=== PATIENT | female | born 1965 | race Hispanic/Latino ===

== ENCOUNTER 2022-12-15 10:14 | Outpatient (CLI) | payer OTHER, MEDICAID | END 2022-12-15 10:15 | disposition home or self-care (01) | LOC: CSHRAD 10:14 → CSHER/OP 10:14 | PROVIDERS: ATTEND Internal Medicine | DX: M48.061 Spinal stenosis, lumbar region without neurogenic claudication (principal); Q76.49 Other congenital malformations of spine, not associated with scoliosis; M48.07 Spinal stenosis, lumbosacral region; M24.28 Disorder of ligament, vertebrae; R93.7 Abnormal findings on diagnostic imaging of other parts of musculoskeletal system | CPT/HCPCS: 72148 ==

== ENCOUNTER 2024-03-15 23:40 | Inpatient (IN) | payer OTHER, MEDICAID ==
[2024-03-16 00:32] LABS: #Basophils Less than 0.03 10x3/uL (0.0-0.2); #Monocytes 0.26 10x3/uL (0.0-1.1); #Neutrophils 2.45 10x3/uL (1.5-8.4); %Basophils 0.3 % (0.0-2.0); %Eosinophils 3.1 % (0.0-6.0); %Lymphocytes 12.9 % (18.0-47.0); %Neutrophils 75.4 % (40.0-75.0); Hematocrit 23.2 % (34.9-44.5); Hemoglobin 8.1 g/dL (12.0-15.5); Mean Corpuscular HGB CONC 34.9 g/dL (32.0-36.0); Mean Corpuscular Hemoglobin 30.3 pg (27.0-33.0); Mean Corpuscular Volume 86.9 fL (81.6-98.3); Mean Platelet Volume 9.9 fL (7.4-10.4); Platelet Count 127 10x3/uL (150-450); RBC Distribution Width 16.2 % (11.5-14.5); Red Blood Cell (RBC) Count 2.67 10x6/uL (3.90-5.03); White Blood Cell (WBC) Count 3.25 10x3/uL (3.5-10.5)
[2024-03-16 00:50] LABS: ALT (SGPT) 11 U/L (Less than 34); AST (SGOT) 17 U/L (11-34); Alkaline Phosphatase 70 U/L (40-110); Anion Gap 9 mmol/L (10-20); BUN (Urea Nitrogen) 36 mg/dL (9.8-20.1); Bilirubin, Total 0.4 mg/dL (0.3-1.2); Calc. Creatinine Clearance 0 mL/min (70-130); Calcium 8.2 mg/dL (7.8-10.44); Carbon Dioxide 22 mmol/L (22-29); Chloride 111 mmol/L (98-107); Estimated GFR 87; Glucose 291 mg/dL (70-105); Lipase 17 U/L (8-78); Magnesium 2.3 mg/dL (1.6-2.6); Potassium 4.8 mmol/L (3.5-5.1); Sodium 137 mmol/L (136-145)
[2024-03-16] MEDS ORDERED: cefTRIAXone (ROCEPHIN) 2 GM VIAL ONE (00:50)
[2024-03-16] MEDS ORDERED: Azithromycin 500 MG VIAL ONE (00:50)
[2024-03-16 00:56] LABS: Troponin I Less than 0.010 ng/mL (< 0.028)
[2024-03-16 01:00] LABS: Actual Bicarbonate (HCO3v) 22.8 mEq/L (22-28); Analyzer IN Cardio CS ER; Base Excess -2.9 mEq/L (-2 - +2); Calcium, Ionized (venous) 1.16 mmol/L (1.16-1.32); Chloride (VBG) 107 mmol/L (98-106); Critical Notified By: CP.PH; Hematocrit-VBG 24 % (36.0-47.0); Potassium (VBG) 4.83 mmol/L (3.70-5.30); Puncture Site Other Site; RapidComm Collect By LAB.YY; Sodium 136 mmol/L (133-146); pH (venous) 7.334 (7.32-7.43)
[2024-03-16] MEDS ORDERED: Morphine 4 MG/ML VIAL ONE (01:01)
[2024-03-16 01:03] LABS: Bilirubin Neg (Negative); Blood, Urine 50 (Negative); Clarity Clear (Clear); Glucose, Urine (Dipstick) 250 mg/dL (Negative); Ketone, Urine Negative (Negative); Leukocyte Negative (Negative); Nitrite Negative (Negative); Protein, Urine (Dipstick) 500 mg/dl (Neg-Trace); Specific Gravity, Urine 1.015 (1.005-1.030); Urobilinogen Normal mg/dL (Less than 2)
[2024-03-16] MEDS ORDERED: Glucagon 1 MG/ML KIT IM PRN (01:31)
[2024-03-16] MEDS ORDERED: Dextrose 50% Abboject 50 ML SYRINGE SLOW IVP PRN (01:31)
[2024-03-16] MEDS ORDERED: Dextrose 5% in Water 1,000 ML IV PRN (01:31)
[2024-03-16] MEDS ORDERED: Calcium Carbonate 500 MG ChewTAB PO PRN (01:32)
[2024-03-16] MEDS ORDERED: Senokot S 8.6-50 MG TAB PO PRN (01:32)
[2024-03-16 01:37] LABS: CAUTI Indications for Culture Alt mental st,lethar; Squamous Epithelial 0-3 HPF (0-3); Transitional Epithelial 0-3 HPF (None Seen); WBC/HPF 0-3 HPF (0-3)
[2024-03-16 01:42] LABS: Bacteria/HPF 1+ HPF (None Seen)
[2024-03-16 01:43] LABS: Urine Culture Reflex No No
[2024-03-16] MEDS: Furosemide 20 MG (2 mL) VIAL SLOW IVP SCH (03:23)
[2024-03-16] MEDS: Benzonatate 100 MG CAP PO SCH ×2 (03:23→08:48)
[2024-03-16] MEDS: Guaifenesin DM 100-10/5 ML UDCUP PO SCH (03:23)
[2024-03-16] MEDS: Cefepime 2 GM in Sodium Chloride 0.9% 100 ML IVPB SCH (03:23)
[2024-03-16 04:04] LABS: #Basophils Less than 0.03 10x3/uL (0.0-0.2); #Eosinophils 0.12 10x3/uL (0.0-0.5); #Monocytes 0.27 10x3/uL (0.0-1.1); #Neutrophils 2.55 10x3/uL (1.5-8.4); %Basophils 0.6 % (0.0-2.0); %Eosinophils 3.4 % (0.0-6.0); %Lymphocytes 16.4 % (18.0-47.0); %Monocytes 7.6 % (0.0-10.0); Hematocrit 25.1 % (34.9-44.5); Hemoglobin 8.2 g/dL (12.0-15.5); Mean Corpuscular HGB CONC 32.7 g/dL (32.0-36.0); Mean Corpuscular Volume 88.7 fL (81.6-98.3); Mean Platelet Volume 9.3 fL (7.4-10.4); Platelet Count 122 10x3/uL (150-450); RBC Distribution Width 16.4 % (11.5-14.5); Red Blood Cell (RBC) Count 2.83 10x6/uL (3.90-5.03); White Blood Cell (WBC) Count 3.54 10x3/uL (3.5-10.5)
[2024-03-16 04:10] LABS: Legionella Urinary Ag Negative (Negative); Strep pneumo Urine Ag NEGATIVE (NEGATIVE)
[2024-03-16] MEDS: HYDROcodone/Acetaminophen 5/325 mg Tablet PO PRN (04:29)
[2024-03-16] MEDS: diphenhydrAMINE 25 MG CAP PO PRN (04:29)
[2024-03-16] MEDS: Ondansetron PF 4 MG/2 ML Vial IVP PRN (04:29)
[2024-03-16 04:30] LABS: Anion Gap 8 mmol/L (10-20); BUN (Urea Nitrogen) 36 mg/dL (9.8-20.1); Calc. Creatinine Clearance 145 mL/min (70-130); Calcium 8.3 mg/dL (7.8-10.44); Carbon Dioxide 23 mmol/L (22-29); Chloride 112 mmol/L (98-107); Estimated GFR 80; Glucose 265 mg/dL (70-105); Potassium 5.2 mmol/L (3.5-5.1); Sodium 138 mmol/L (136-145)
[2024-03-16] MEDS: Morphine IR Tab 15 MG TAB PO PRN (06:09)
[2024-03-16] MEDS: Insulin Lispro 100 UNIT/ML 10 ML VIAL SC PRN (06:10)
[2024-03-16 06:14] VITALS: BMI 51.2
[2024-03-16] MEDS: Pantoprazole 40 MG DR.TAB PO SCH (08:48)
[2024-03-16] MEDS: Multivit, Therapeutic 1 TAB PO SCH (08:48)
[2024-03-16] MEDS: Furosemide 20 MG TAB PO SCH (08:48)
[2024-03-16] MEDS: Spironolactone 25 MG TAB PO SCH (08:48)
[2024-03-16] MEDS: metFORMIN 500 MG TAB PO SCH (08:48)
[2024-03-16] MEDS: Folic Acid/Vit B Comp W-C PO SCH (08:55)
[2024-03-16] MEDS ORDERED: Enoxaparin 40 MG (0.4 mL) SYRINGE SC SCH (09:00)
[2024-03-16] MEDS: Lactulose 20 GM (30 mL) UDCUP PO SCH (09:01)
[2024-03-16] MEDS: Morphine 4 MG/ML VIAL SLOW IVP PRN (10:10)
[2024-03-16] MEDS: Enoxaparin 40 MG (0.4 mL) SYRINGE SC SCH (19:38)
[2024-03-17] MEDS: Azithromycin 500 MG in Sodium Chloride 0.9% 250 ML 250 ML IVPB SCH (02:09)
[2024-03-17 04:15] LABS: #Basophils Less than 0.03 10x3/uL (0.0-0.2); #Eosinophils 0.16 10x3/uL (0.0-0.5); #Monocytes 0.21 10x3/uL (0.0-1.1); #Neutrophils 1.77 10x3/uL (1.5-8.4); %Basophils 0.7 % (0.0-2.0); %Eosinophils 5.7 % (0.0-6.0); %Lymphocytes 22.2 % (18.0-47.0); %Monocytes 7.5 % (0.0-10.0); %Neutrophils 63.5 % (40.0-75.0); Hematocrit 23.6 % (34.9-44.5); Mean Corpuscular HGB CONC 33.9 g/dL (32.0-36.0); Mean Corpuscular Hemoglobin 30.1 pg (27.0-33.0); Mean Corpuscular Volume 88.7 fL (81.6-98.3); Mean Platelet Volume 9.7 fL (7.4-10.4); Platelet Count 129 10x3/uL (150-450); RBC Distribution Width 16.9 % (11.5-14.5); Red Blood Cell (RBC) Count 2.66 10x6/uL (3.90-5.03); White Blood Cell (WBC) Count 2.79 10x3/uL (3.5-10.5)
[2024-03-17 04:30] LABS: Anion Gap 10 mmol/L (10-20); BUN (Urea Nitrogen) 39 mg/dL (9.8-20.1); Calc. Creatinine Clearance 138 mL/min (70-130); Calcium 8.2 mg/dL (7.8-10.44); Carbon Dioxide 22 mmol/L (22-29); Chloride 111 mmol/L (98-107); Estimated GFR 70; Glucose 152 mg/dL (70-105); Potassium 5.6 mmol/L (3.5-5.1); Sodium 137 mmol/L (136-145)
[2024-03-17] MEDS: Morphine 2 MG/ML VIAL SLOW IVP PRN (08:26)
[2024-03-17] MEDS: Morphine ER 15 MG TAB PO SCH ×2 (09:52→20:44)
[2024-03-17] MEDS: Morphine IR Tab 15 MG TAB PO PRN (15:44)
[2024-03-17] MEDS: cefTRIAXone\\ROCEPHIN 2 GM in Sodium Chloride 0.9% 100 ML IVPB SCH (16:00)
[2024-03-17] MEDS ORDERED: Amoxicillin/Potassium Clav 875 MG TAB PO SCH (21:00)
[2024-03-17] MEDS ORDERED: Morphine ER 15 MG TAB PO SCH (21:00)
[2024-03-18 05:06] LABS: #Basophils Less than 0.03 10x3/uL (0.0-0.2); #Eosinophils 0.12 10x3/uL (0.0-0.5); #Monocytes 0.17 10x3/uL (0.0-1.1); #Neutrophils 1.87 10x3/uL (1.5-8.4); %Basophils 0.7 % (0.0-2.0); %Eosinophils 4.3 % (0.0-6.0); %Lymphocytes 21.8 % (18.0-47.0); %Monocytes 6.1 % (0.0-10.0); %Neutrophils 66.7 % (40.0-75.0); Hematocrit 22.4 % (34.9-44.5); Hemoglobin 7.7 g/dL (12.0-15.5); Mean Corpuscular HGB CONC 34.4 g/dL (32.0-36.0); Mean Corpuscular Hemoglobin 30.7 pg (27.0-33.0); Mean Corpuscular Volume 89.2 fL (81.6-98.3); Mean Platelet Volume 9.7 fL (7.4-10.4); Platelet Count 129 10x3/uL (150-450); Red Blood Cell (RBC) Count 2.51 10x6/uL (3.90-5.03)
[2024-03-18 05:22] LABS: Anion Gap 10 mmol/L (10-20); BUN (Urea Nitrogen) 41 mg/dL (9.8-20.1); Calc. Creatinine Clearance 132 mL/min (70-130); Calcium 8.2 mg/dL (7.8-10.44); Carbon Dioxide 22 mmol/L (22-29); Chloride 110 mmol/L (98-107); Estimated GFR 66; Glucose 141 mg/dL (70-105); Potassium 5.3 mmol/L (3.5-5.1); Sodium 137 mmol/L (136-145)
[2024-03-18] MEDS: LOKELMA 10 GM PACKET PO SCH (09:05)
[2024-03-18] MEDS: Azithromycin 250 MG TAB PO SCH (09:05)
[2024-03-18] MEDS: Sodium Polystyrene Sulfonate 15 GM (60 mL) BOT PO SCH (09:09)
[2024-03-19] MEDS: HYDROcodone/Acetaminophen 5/325 mg Tablet PO PRN (01:00)
[2024-03-19 04:12] LABS: #Basophils Less than 0.03 10x3/uL (0.0-0.2); #Eosinophils 0.11 10x3/uL (0.0-0.5); #Monocytes 0.24 10x3/uL (0.0-1.1); #Neutrophils 2.02 10x3/uL (1.5-8.4); %Basophils 0.3 % (0.0-2.0); %Eosinophils 3.7 % (0.0-6.0); %Lymphocytes 20.1 % (18.0-47.0); %Neutrophils 67.6 % (40.0-75.0); Hematocrit 22.7 % (34.9-44.5); Hemoglobin 7.8 g/dL (12.0-15.5); Mean Corpuscular HGB CONC 34.4 g/dL (32.0-36.0); Mean Corpuscular Hemoglobin 30.5 pg (27.0-33.0); Mean Corpuscular Volume 88.7 fL (81.6-98.3); Mean Platelet Volume 9.4 fL (7.4-10.4); Platelet Count 126 10x3/uL (150-450); RBC Distribution Width 16.7 % (11.5-14.5); Red Blood Cell (RBC) Count 2.56 10x6/uL (3.90-5.03); White Blood Cell (WBC) Count 2.99 10x3/uL (3.5-10.5)
[2024-03-19 04:30] LABS: Anion Gap 11 mmol/L (10-20); BUN (Urea Nitrogen) 43 mg/dL (9.8-20.1); Calc. Creatinine Clearance 151 mL/min (70-130); Calcium 8.4 mg/dL (7.8-10.44); Carbon Dioxide 21 mmol/L (22-29); Chloride 113 mmol/L (98-107); Estimated GFR 78; Glucose 117 mg/dL (70-105); Potassium 5.9 mmol/L (3.5-5.1); Sodium 139 mmol/L (136-145)
[2024-03-19] MEDS: Sodium Polystyrene Sulfonate 15 GM (60 mL) BOT PO SCH (06:11)
[2024-03-19] MEDS: Lactulose 20 GM (30 mL) UDCUP PO SCH (09:16)
[2024-03-19] MEDS: Furosemide 40 MG TAB PO SCH (09:16)
[2024-03-19 10:52] LABS: Anion Gap 12 mmol/L (10-20); BUN (Urea Nitrogen) 43 mg/dL (9.8-20.1); Calc. Creatinine Clearance 149 mL/min (70-130); Calcium 8.8 mg/dL (7.8-10.44); Carbon Dioxide 20 mmol/L (22-29); Chloride 111 mmol/L (98-107); Estimated GFR 77; Glucose 121 mg/dL (70-105); Potassium 5.6 mmol/L (3.5-5.1); Sodium 137 mmol/L (136-145)
[2024-03-20 04:20] LABS: #Basophils Less than 0.03 10x3/uL (0.0-0.2); #Eosinophils 0.08 10x3/uL (0.0-0.5); #Monocytes 0.22 10x3/uL (0.0-1.1); #Neutrophils 1.85 10x3/uL (1.5-8.4); %Basophils 0.7 % (0.0-2.0); %Eosinophils 2.9 % (0.0-6.0); %Lymphocytes 22.1 % (18.0-47.0); %Monocytes 7.9 % (0.0-10.0); Hematocrit 22.1 % (34.9-44.5); Hemoglobin 7.4 g/dL (12.0-15.5); Mean Corpuscular HGB CONC 33.5 g/dL (32.0-36.0); Mean Corpuscular Hemoglobin 29.6 pg (27.0-33.0); Mean Corpuscular Volume 88.4 fL (81.6-98.3); Mean Platelet Volume 9.6 fL (7.4-10.4); Platelet Count 126 10x3/uL (150-450); RBC Distribution Width 16.8 % (11.5-14.5)
[2024-03-20 04:37] LABS: Anion Gap 9 mmol/L (10-20); BUN (Urea Nitrogen) 38 mg/dL (9.8-20.1); Calc. Creatinine Clearance 164 mL/min (70-130); Calcium 8.7 mg/dL (7.8-10.44); Carbon Dioxide 22 mmol/L (22-29); Chloride 113 mmol/L (98-107); Estimated GFR 86; Glucose 147 mg/dL (70-105); Potassium 5.4 mmol/L (3.5-5.1); Sodium 139 mmol/L (136-145)
[2024-03-20] MEDS: LOKELMA 10 GM PACKET PO SCH (08:09)
[2024-03-20 12:49] LABS: Anion Gap 10 mmol/L (10-20)
[2024-03-20 12:56] LABS: BUN (Urea Nitrogen) 38 mg/dL (9.8-20.1); Calc. Creatinine Clearance 168 mL/min (70-130); Calcium 8.2 mg/dL (7.8-10.44); Carbon Dioxide 21 mmol/L (22-29); Chloride 112 mmol/L (98-107); Estimated GFR 89; Glucose 158 mg/dL (70-105); Potassium 5.4 mmol/L (3.5-5.1); Sodium 140 mmol/L (136-145)
[2024-03-21 04:11] LABS: Anion Gap 12 mmol/L (10-20); BUN (Urea Nitrogen) 38 mg/dL (9.8-20.1); Calc. Creatinine Clearance 160 mL/min (70-130); Calcium 8.8 mg/dL (7.8-10.44); Carbon Dioxide 21 mmol/L (22-29); Chloride 112 mmol/L (98-107); Estimated GFR 84; Glucose 110 mg/dL (70-105); Potassium 5.3 mmol/L (3.5-5.1); Sodium 140 mmol/L (136-145)
[2024-03-21 04:20] LABS: Platelet Count 130 10x3/uL (150-450)
[2024-03-21 04:22] LABS: #Basophils Less than 0.03 10x3/uL (0.0-0.2); #Eosinophils 0.09 10x3/uL (0.0-0.5); #Monocytes 0.24 10x3/uL (0.0-1.1); %Basophils 0.4 % (0.0-2.0); %Eosinophils 3.5 % (0.0-6.0); %Lymphocytes 19.9 % (18.0-47.0); %Monocytes 9.4 % (0.0-10.0); %Neutrophils 66.4 % (40.0-75.0); Hematocrit 21.4 % (34.9-44.5); Hemoglobin 7.4 g/dL (12.0-15.5); Mean Corpuscular HGB CONC 34.6 g/dL (32.0-36.0); Mean Corpuscular Hemoglobin 30.7 pg (27.0-33.0); Mean Corpuscular Volume 88.8 fL (81.6-98.3); Mean Platelet Volume 9.2 fL (7.4-10.4); Red Blood Cell (RBC) Count 2.41 10x6/uL (3.90-5.03); White Blood Cell (WBC) Count 2.56 10x3/uL (3.5-10.5)
[2024-03-21] MEDS: LOKELMA 10 GM PACKET PO SCH (08:14)
[2024-03-21] MEDS ORDERED: Morphine 2 MG/ML VIAL SLOW IVP PRN (10:06)
[2024-03-21] MEDS: Furosemide 40 MG (4 mL) VIAL SLOW IVP SCH (10:27)
[2024-03-21] MEDS: Lidocaine 4% Patch TD SCH (10:30)
[2024-03-21] MEDS: metFORMIN 500 MG TAB PO SCH ×2 (10:34→17:39)
[2024-03-21] MEDS ORDERED: Metoprolol Tartrate 25 MG TAB PO SCH (14:15)
[2024-03-21] MEDS: Dexamethasone 20 MG/5 ML VIAL SLOW IVP SCH (14:18)
[2024-03-21] MEDS: Labetalol HCl 100 MG/20 ML VIAL SLOW IVP SCH (14:18)
[2024-03-21 16:09] LABS: ALT (SGPT) 9 U/L (Less than 34); AST (SGOT) 25 U/L (11-34); Albumin 2.2 g/dL (3.1-4.5); Alkaline Phosphatase 60 U/L (40-110); Bilirubin, Direct 0.2 mg/dL (0.1-0.3); Bilirubin, Total 0.3 mg/dL (0.3-1.2); Lipase 10 U/L (8-78); Protein, Total 5.3 g/dL (6.0-8.3)
[2024-03-21 19:27] LABS: Anion Gap 13 mmol/L (10-20); BUN (Urea Nitrogen) 37 mg/dL (9.8-20.1); Calc. Creatinine Clearance 166 mL/min (70-130); Calcium 8.9 mg/dL (7.8-10.44); Carbon Dioxide 23 mmol/L (22-29); Chloride 110 mmol/L (98-107); Estimated GFR 87; Glucose 292 mg/dL (70-105); Potassium 5.5 mmol/L (3.5-5.1); Sodium 140 mmol/L (136-145)
[2024-03-21] MEDS: Transdermal Patch Removal - LIDOCAINE TOP SCH (21:09)
[2024-03-21] MEDS: Labetalol HCl 100 MG/20 ML VIAL SLOW IVP PRN (23:37)
[2024-03-22] MEDS: LOKELMA 10 GM PACKET PO SCH (01:53)
[2024-03-22 04:33] LABS: #Basophils Less than 0.03 10x3/uL (0.0-0.2); #Eosinophils Less than 0.03 10x3/uL (0.0-0.5); #Monocytes 0.05 10x3/uL (0.0-1.1); #Neutrophils 1.79 10x3/uL (1.5-8.4); %Lymphocytes 10.1 % (18.0-47.0); %Monocytes 2.4 % (0.0-10.0); %Neutrophils 86.5 % (40.0-75.0); Hematocrit 24.7 % (34.9-44.5); Hemoglobin 8.2 g/dL (12.0-15.5); Mean Corpuscular HGB CONC 33.2 g/dL (32.0-36.0); Mean Corpuscular Hemoglobin 29.6 pg (27.0-33.0); Mean Corpuscular Volume 89.2 fL (81.6-98.3); Mean Platelet Volume 9.5 fL (7.4-10.4); Platelet Count 126 10x3/uL (150-450); RBC Distribution Width 16.4 % (11.5-14.5); Red Blood Cell (RBC) Count 2.77 10x6/uL (3.90-5.03); White Blood Cell (WBC) Count 2.07 10x3/uL (3.5-10.5)
[2024-03-22 04:41] LABS: INR-International Normal Ratio 1.2; PTT 28.8 sec (22.0-33.0); Prothrombin Time 12.7 sec (9.5-12.1)
[2024-03-22 04:47] LABS: ALT (SGPT) 16 U/L (Less than 34); AST (SGOT) 37 U/L (11-34); Albumin 2.5 g/dL (3.1-4.5); Alkaline Phosphatase 83 U/L (40-110); Anion Gap 15 mmol/L (10-20); BUN (Urea Nitrogen) 36 mg/dL (9.8-20.1); Bilirubin, Total 0.3 mg/dL (0.3-1.2); Calc. Creatinine Clearance 154 mL/min (70-130); Calcium 9.1 mg/dL (7.8-10.44); Carbon Dioxide 20 mmol/L (22-29); Chloride 111 mmol/L (98-107); Estimated GFR 80; Globulin 3.5 g/dL (2.4-3.5); Glucose 284 mg/dL (70-105); Potassium 4.9 mmol/L (3.5-5.1); Sodium 141 mmol/L (136-145)
[2024-03-22] MEDS: Furosemide 40 MG (4 mL) VIAL SLOW IVP SCH (09:39)
[2024-03-22] MEDS: Metoprolol Tartrate 25 MG TAB PO SCH (09:39)
[2024-03-22] MEDS: Morphine 4 MG/ML VIAL SLOW IVP PRN (10:51)
[2024-03-22] MEDS: Lactulose 20 GM (30 mL) UDCUP PO SCH (12:48)
[2024-03-22] MEDS: Bacitracin 1 PK TOP SCH (14:09)
[2024-03-23] MEDS: traZODone HCl 50 MG TAB PO SCH (01:16)
[2024-03-23 04:22] LABS: #Basophils Less than 0.03 10x3/uL (0.0-0.2); #Eosinophils 0.04 10x3/uL (0.0-0.5); #Monocytes 0.25 10x3/uL (0.0-1.1); %Basophils 0.2 % (0.0-2.0); %Eosinophils 0.8 % (0.0-6.0); %Monocytes 4.9 % (0.0-10.0); %Neutrophils 82.7 % (40.0-75.0); Hematocrit 24.1 % (34.9-44.5); Hemoglobin 8.1 g/dL (12.0-15.5); Mean Corpuscular HGB CONC 33.6 g/dL (32.0-36.0); Mean Corpuscular Hemoglobin 30.2 pg (27.0-33.0); Mean Corpuscular Volume 89.9 fL (81.6-98.3); Mean Platelet Volume 9.9 fL (7.4-10.4); Platelet Count 141 10x3/uL (150-450); RBC Distribution Width 17.2 % (11.5-14.5); Red Blood Cell (RBC) Count 2.68 10x6/uL (3.90-5.03); White Blood Cell (WBC) Count 5.08 10x3/uL (3.5-10.5)
[2024-03-23 04:47] LABS: ALT (SGPT) 14 U/L (Less than 34); AST (SGOT) 24 U/L (11-34); Albumin 2.4 g/dL (3.1-4.5); Alkaline Phosphatase 69 U/L (40-110); Anion Gap 13 mmol/L (10-20); BUN (Urea Nitrogen) 39 mg/dL (9.8-20.1); Bilirubin, Total 0.2 mg/dL (0.3-1.2); Calc. Creatinine Clearance 138 mL/min (70-130); Calcium 8.9 mg/dL (7.8-10.44); Carbon Dioxide 21 mmol/L (22-29); Chloride 110 mmol/L (98-107); Estimated GFR 70; Globulin 3.2 g/dL (2.4-3.5); Glucose 215 mg/dL (70-105); Potassium 5.4 mmol/L (3.5-5.1); Protein, Total 5.6 g/dL (6.0-8.3); Sodium 139 mmol/L (136-145)
[2024-03-23] MEDS ORDERED: Lidocaine-Prilocaine 2.5% Cream 5 GM TUBE TOP SCH (10:15)
[2024-03-23] MEDS: Morphine 4 MG/ML VIAL SLOW IVP SCH (10:23)
[2024-03-23] MEDS ORDERED: Morphine 4 MG/ML VIAL SLOW IVP SCH (10:30)
[2024-03-23] MEDS: Nystatin Powder 15 GM BOT TOP SCH (12:12)
[2024-03-23] MEDS: LOKELMA 10 GM PACKET PO SCH (12:12)
[2024-03-23 13:37] VITALS: BMI 51.2
[2024-03-23] MEDS: Morphine IR Tab 15 MG TAB PO PRN (14:52)
[2024-03-23 14:56] LABS: Hemoglobin A1c 6.1 % (4.0-6.0)
[2024-03-23 20:40] LABS: INR-International Normal Ratio 1.1; PTT 26.2 sec (22.0-33.0); Prothrombin Time 11.9 sec (9.5-12.1)
[2024-03-23] MEDS: Albumin 25% 25 GM (100 mL) BOT IVPB SCH (20:58)
[2024-03-23] MEDS: traZODone HCl 50 MG TAB PO PRN (21:04)
[2024-03-23] MEDS: Pantoprazole 40 MG DR.TAB PO SCH (21:05)
[2024-03-23 21:31] LABS: Anion Gap 15 mmol/L (10-20); BUN (Urea Nitrogen) 45 mg/dL (9.8-20.1); Calc. Creatinine Clearance 130 mL/min (70-130); Calcium 8.9 mg/dL (7.8-10.44); Carbon Dioxide 21 mmol/L (22-29); Chloride 106 mmol/L (98-107); Estimated GFR 65; Glucose 196 mg/dL (70-105); Iron 91 ug/dL (50-170); Iron Binding Capacity, Total 224 mcg/dL (265-497); Potassium 5.3 mmol/L (3.5-5.1); Sodium 137 mmol/L (136-145)
[2024-03-24 04:38] LABS: #Basophils Less than 0.03 10x3/uL (0.0-0.2); #Eosinophils 0.14 10x3/uL (0.0-0.5); #Monocytes 0.28 10x3/uL (0.0-1.1); #Neutrophils 2.57 10x3/uL (1.5-8.4); %Basophils 0.5 % (0.0-2.0); %Eosinophils 3.8 % (0.0-6.0); %Lymphocytes 18.6 % (18.0-47.0); %Monocytes 7.5 % (0.0-10.0); %Neutrophils 69.3 % (40.0-75.0); Hematocrit 22.2 % (34.9-44.5); Hemoglobin 7.3 g/dL (12.0-15.5); Mean Corpuscular HGB CONC 32.9 g/dL (32.0-36.0); Mean Corpuscular Hemoglobin 31.1 pg (27.0-33.0); Mean Corpuscular Volume 94.5 fL (81.6-98.3); Platelet Count 123 10x3/uL (150-450); Red Blood Cell (RBC) Count 2.35 10x6/uL (3.90-5.03); White Blood Cell (WBC) Count 3.71 10x3/uL (3.5-10.5)
[2024-03-24 04:54] LABS: ALT (SGPT) 13 U/L (Less than 34); AST (SGOT) 23 U/L (11-34); Albumin 2.9 g/dL (3.1-4.5); Alkaline Phosphatase 60 U/L (40-110); Anion Gap 15 mmol/L (10-20); BUN (Urea Nitrogen) 47 mg/dL (9.8-20.1); Bilirubin, Total 0.3 mg/dL (0.3-1.2); Calc. Creatinine Clearance 125 mL/min (70-130); Calcium 8.8 mg/dL (7.8-10.44); Carbon Dioxide 21 mmol/L (22-29); Chloride 105 mmol/L (98-107); Estimated GFR 62; Glucose 178 mg/dL (70-105); Protein, Total 5.9 g/dL (6.0-8.3); Sodium 136 mmol/L (136-145)
[2024-03-24] MEDS: Albumin 25% 25 GM (100 mL) BOT IVPB SCH ×2 (06:08→15:03)
[2024-03-24] MEDS ORDERED: PROPOFOL 20 ML ONE (13:13)
[2024-03-24] MEDS ORDERED: Lidocaine 1% PF 5 ML VIAL ONE (13:13)
[2024-03-24] MEDS ORDERED: PHENYLEPHRINE-NS 100 MCG/ML 10 ML SYRINGE ONE (13:31)
[2024-03-25] MEDS: Guaifenesin DM 100-10/5 ML UDCUP PO PRN (01:59)
[2024-03-25 05:32] LABS: #Basophils Less than 0.03 10x3/uL (0.0-0.2); #Eosinophils 0.17 10x3/uL (0.0-0.5); #Monocytes 0.36 10x3/uL (0.0-1.1); #Neutrophils 2.71 10x3/uL (1.5-8.4); %Basophils 0.3 % (0.0-2.0); %Eosinophils 4.5 % (0.0-6.0); %Lymphocytes 12.6 % (18.0-47.0); %Monocytes 9.6 % (0.0-10.0); %Neutrophils 72.5 % (40.0-75.0); Hematocrit 28.4 % (34.9-44.5); Hemoglobin 9.2 g/dL (12.0-15.5); Mean Corpuscular HGB CONC 32.4 g/dL (32.0-36.0); Mean Corpuscular Hemoglobin 29.8 pg (27.0-33.0); Mean Corpuscular Volume 91.9 fL (81.6-98.3); Platelet Count 129 10x3/uL (150-450); RBC Distribution Width 18.3 % (11.5-14.5); Red Blood Cell (RBC) Count 3.09 10x6/uL (3.90-5.03); White Blood Cell (WBC) Count 3.74 10x3/uL (3.5-10.5)
[2024-03-25 05:34] LABS: Anion Gap 13 mmol/L (10-20); BUN (Urea Nitrogen) 55 mg/dL (9.8-20.1); Calc. Creatinine Clearance 130 mL/min (70-130); Calcium 8.7 mg/dL (7.8-10.44); Carbon Dioxide 22 mmol/L (22-29); Chloride 107 mmol/L (98-107); Estimated GFR 65; Glucose 167 mg/dL (70-105); Sodium 137 mmol/L (136-145)
[2024-03-25] MEDS ORDERED: Sodium Polystyrene Sulfonate 15 GM (60 mL) BOT PO SCH (08:30)
[2024-03-25] MEDS: Hydrocortisone 1% Cream 30 GM TUBE TOP PRN (11:17)
[2024-03-25] MEDS: LOKELMA 5 GM PACKET PO SCH (11:22)
[2024-03-25] MEDS: Furosemide 40 MG (4 mL) VIAL SLOW IVP SCH (13:30)
[2024-03-25] MEDS: Benzocaine 20% Spray 60 ML CAN PO SCH (17:48)
[2024-03-26 05:13] LABS: Anion Gap 15 mmol/L (10-20); BUN (Urea Nitrogen) 60 mg/dL (9.8-20.1); Calc. Creatinine Clearance 111 mL/min (70-130); Carbon Dioxide 20 mmol/L (22-29); Chloride 107 mmol/L (98-107); Estimated GFR 54; Glucose 154 mg/dL (70-105); Potassium 5.2 mmol/L (3.5-5.1); Sodium 137 mmol/L (136-145)
[2024-03-26 05:19] LABS: Platelet Count 99 10x3/uL (150-450)
[2024-03-26 05:23] LABS: #Basophils Less than 0.03 10x3/uL (0.0-0.2); #Eosinophils 0.06 10x3/uL (0.0-0.5); %Eosinophils 1.1 % (0.0-6.0); %Lymphocytes 8.3 % (18.0-47.0); %Monocytes 9.4 % (0.0-10.0); %Neutrophils 80.8 % (40.0-75.0); Hematocrit 26.9 % (34.9-44.5); Hemoglobin 8.9 g/dL (12.0-15.5); Mean Corpuscular HGB CONC 33.1 g/dL (32.0-36.0); Mean Corpuscular Hemoglobin 30.7 pg (27.0-33.0); Mean Corpuscular Volume 92.8 fL (81.6-98.3); Mean Platelet Volume 10.4 fL (7.4-10.4); RBC Distribution Width 17.8 % (11.5-14.5); White Blood Cell (WBC) Count 5.32 10x3/uL (3.5-10.5)
[2024-03-26 05:29] LABS: Anisocytosis SLIGHT = 6-15 cells (100X) (0-5/hpf); Ovalocytes SLIGHT = 2-5 cells (100X) (0-1/hpf); Platelet Adequacy Comment Appears Decreased
[2024-03-26 05:30] LABS: Polychromasia SLIGHT = 2-3 cells (100X) (0-2/hpf)
[2024-03-26] MEDS: Albumin 25% 25 GM (100 mL) BOT IVPB SCH (12:58)
[2024-03-26] MEDS: LOKELMA 10 GM PACKET PO SCH (12:58)
[2024-03-26] MEDS: Meclizine HCl 12.5 MG TAB PO PRN (15:48)
[2024-03-26] MEDS: Furosemide 40 MG (4 mL) VIAL SLOW IVP SCH (17:25)
[2024-03-27 04:21] LABS: Platelet Count 95 10x3/uL (150-450)
[2024-03-27 04:22] LABS: #Basophils Less than 0.03 10x3/uL (0.0-0.2); #Eosinophils 0.08 10x3/uL (0.0-0.5); #Monocytes 0.44 10x3/uL (0.0-1.1); %Eosinophils 1.9 % (0.0-6.0); %Lymphocytes 10.1 % (18.0-47.0); %Monocytes 10.6 % (0.0-10.0); %Neutrophils 77.2 % (40.0-75.0); Hematocrit 25.2 % (34.9-44.5); Hemoglobin 8.2 g/dL (12.0-15.5); Mean Corpuscular HGB CONC 32.5 g/dL (32.0-36.0); Mean Corpuscular Volume 92.3 fL (81.6-98.3); Mean Platelet Volume 10.5 fL (7.4-10.4); RBC Distribution Width 17.7 % (11.5-14.5); Red Blood Cell (RBC) Count 2.73 10x6/uL (3.90-5.03); White Blood Cell (WBC) Count 4.15 10x3/uL (3.5-10.5)
[2024-03-27 04:27] LABS: Anion Gap 13 mmol/L (10-20); BUN (Urea Nitrogen) 61 mg/dL (9.8-20.1); Calc. Creatinine Clearance 121 mL/min (70-130); Calcium 9.1 mg/dL (7.8-10.44); Carbon Dioxide 23 mmol/L (22-29); Chloride 108 mmol/L (98-107); Estimated GFR 60; Glucose 148 mg/dL (70-105); Magnesium 2.2 mg/dL (1.6-2.6); Potassium 5.2 mmol/L (3.5-5.1); Sodium 139 mmol/L (136-145)
[2024-03-27] MEDS: Furosemide 40 MG (4 mL) VIAL SLOW IVP SCH (08:36)
[2024-03-27 08:55] LABS: Actual Bicarbonate (HCO3a) 24.6 mEq/L (22-28); Analyzer IN Cardio CS ER; Base Excess (BEa) -1.3 mEq/L (-2.0 to +3.0); CO2 Tension 46.5 mmHg (35.0-45.0); Calcium, Ionized (arterial) 1.16 mmol/L (1.12-1.30); Carboxyhemoglobin (COHb) 0.3 gm% (0.0-3.0); Critical Notified Whom: perjor; Hematocrit-ABG 27 % (36.0-47.0); Hemoglobin (Hb) 9.1 g/dL (12.0-16.0); O2 Tension (PaO2), arterial 56.7 mmHg (80.0-100.0); Potassium - ABG Lab 5.13 mmol/L (3.70-5.30); Puncture Site Right Brachial art; pH, Arterial 7.341 (7.35-7.45)
[2024-03-27 09:00] LABS: ALV-art Gradient 113.335 mmHg (0-20)
[2024-03-27] MEDS ORDERED: LOKELMA 10 GM PACKET PO SCH (09:00)
[2024-03-27] MEDS: Furosemide 100 MG (10 mL) VIAL SLOW IVP SCH ×2 (09:25→15:30)
[2024-03-27] MEDS: Furosemide 40 MG (4 mL) VIAL ONE (09:25)
[2024-03-27] MEDS: Albumin 25% 25 GM (100 mL) BOT IVPB SCH (10:18)
[2024-03-27] MEDS: LOKELMA 10 GM PACKET PO SCH (10:23)
[2024-03-27] MEDS: Lactulose 20 GM (30 mL) UDCUP PO SCH (15:32)
[2024-03-28 03:39] LABS: #Basophils Less than 0.03 10x3/uL (0.0-0.2); #Eosinophils 0.07 10x3/uL (0.0-0.5); #Monocytes 0.41 10x3/uL (0.0-1.1); #Neutrophils 3.57 10x3/uL (1.5-8.4); %Basophils 0.2 % (0.0-2.0); %Eosinophils 1.6 % (0.0-6.0); %Lymphocytes 5.6 % (18.0-47.0); %Monocytes 9.5 % (0.0-10.0); %Neutrophils 82.9 % (40.0-75.0); Hematocrit 26.2 % (34.9-44.5); Hemoglobin 8.7 g/dL (12.0-15.5); Mean Corpuscular HGB CONC 33.2 g/dL (32.0-36.0); Mean Corpuscular Hemoglobin 30.4 pg (27.0-33.0); Mean Corpuscular Volume 91.6 fL (81.6-98.3); Platelet Count 121 10x3/uL (150-450); RBC Distribution Width 17.4 % (11.5-14.5); Red Blood Cell (RBC) Count 2.86 10x6/uL (3.90-5.03); White Blood Cell (WBC) Count 4.31 10x3/uL (3.5-10.5)
[2024-03-28 04:03] LABS: ALT (SGPT) 9 U/L (Less than 34); AST (SGOT) 16 U/L (11-34); Albumin 3.3 g/dL (3.1-4.5); Alkaline Phosphatase 60 U/L (40-110); Anion Gap 15 mmol/L (10-20); BUN (Urea Nitrogen) 63 mg/dL (9.8-20.1); Bilirubin, Total 1.1 mg/dL (0.3-1.2); Calc. Creatinine Clearance 125 mL/min (70-130); Calcium 9.5 mg/dL (7.8-10.44); Carbon Dioxide 21 mmol/L (22-29); Chloride 108 mmol/L (98-107); Estimated GFR 62; Globulin 2.6 g/dL (2.4-3.5); Glucose 130 mg/dL (70-105); Magnesium 2.1 mg/dL (1.6-2.6); Potassium 5.1 mmol/L (3.5-5.1); Protein, Total 5.9 g/dL (6.0-8.3); Sodium 139 mmol/L (136-145)
[2024-03-28] MEDS: Furosemide 40 MG (4 mL) VIAL SLOW IVP SCH ×2 (05:37→14:14)
[2024-03-28] MEDS: Metolazone 2.5 MG TAB PO SCH (14:13)
[2024-03-28] MEDS ORDERED: Furosemide 100 MG, Admixture Fee 1 EACH in Sodium Chloride 0.9% 100 ML IVPB SCH (14:30)
[2024-03-28 17:57] VITALS: BP 159/66; TEMP 97.5
== END 2024-03-28 19:11 | disposition still patient (30) | DRG 193 ==
LOC: CSHERS 23:40 → CSHTELE 03-16 01:22
PROVIDERS: ADMIT Student in an Organized Health Care Education/Training Program; ATTEND Internal Medicine
PROC: 0W3P8ZZ Control Bleeding in Gastrointestinal Tract, Via Natural or Artificial Opening Endoscopic (ICD-10-PCS; principal; 2024-03-24)
PROC: 30233N1 Transfusion of Nonautologous Red Blood Cells into Peripheral Vein, Percutaneous Approach (ICD-10-PCS; 2024-03-24)
PROC: 4A033R1 Measurement of Arterial Saturation, Peripheral, Percutaneous Approach (ICD-10-PCS; 2024-03-27)
PROC: 5A09357 Assistance with Respiratory Ventilation, Less than 24 Consecutive Hours, Continuous Positive Airway Pressure (ICD-10-PCS; 2024-03-27)
DX: J18.9 Pneumonia, unspecified organism (principal); I50.33 Acute on chronic diastolic (congestive) heart failure; J96.21 Acute and chronic respiratory failure with hypoxia; D61.818 Other pancytopenia; Z68.43 Body mass index [BMI] 50.0-59.9, adult; K92.0 Hematemesis; D64.9 Anemia, unspecified; K74.60 Unspecified cirrhosis of liver; E11.9 Type 2 diabetes mellitus without complications; F17.210 Nicotine dependence, cigarettes, uncomplicated; Z66 Do not resuscitate; E66.01 Morbid (severe) obesity due to excess calories; E87.5 Hyperkalemia; D69.6 Thrombocytopenia, unspecified; G89.4 Chronic pain syndrome; Z91.041 Radiographic dye allergy status; Z88.8 Allergy status to other drugs, medicaments and biological substances; Z79.84 Long term (current) use of oral hypoglycemic drugs; Z90.49 Acquired absence of other specified parts of digestive tract; Z90.710 Acquired absence of both cervix and uterus; Z98.51 Tubal ligation status; Z79.899 Other long term (current) drug therapy; Z51.5 Encounter for palliative care
CPT/HCPCS: 36415; 36416; 36430; 36600; 51701; 71045; 74176; 80048; 80053; 80076; 81001; 82088; 82140; 82533; 82728; 82805; 83036; 83540; 83550; 83605; 83690; 83735; 83880; 84244; 84484; 85025; 85046; 85610; 85730; 86850; 86900; 86901; 87040; 87081; 87086; 87428; 87449; 87899; 93005; 93010; 94660; 94760; 94762; 96374; 96375; J0456; J0692; J0696; J1100; J1650; J1815; J1940; J2270; J2272; J2405; J2704; J7050; P9016; P9047